=== PATIENT | female | born 2000 | race Caucasian/White ===

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

== ENCOUNTER 2019-02-17 14:04 | Emergency (ER) | payer OTHER ==
[2019-02-17 14:48] VITALS: BP 108/66
--- NOTE | 2019-02-17 15:15 | UC ---
Shoulder Pain HPI - HPI Summary HPI Summary: 18-year-old female comes in with a chief complaint of right shoulder pain. Started about 2 days ago. Started in the right trapezius muscle area. Pain does radiate down the right arm. Pain extends from the right side of the neck through the trapezius. She does have more pain when she moves that. Pain is worse she's using her right arm. She has had some intermittent tingling. Today when she was picking a gallon of milk should put it down because is afraid she might drop. She has pain with use; by history it appears the pain is limiting use of the arm rather than weakness. No known injury. Patient is 31 weeks . She's been putting heat on the area but is not helping. - History of Current Complaint Chief Complaint: UCUpperExtremity Stated Complaint: RIGHT SHOULDER/ARM PAIN Time Seen by Provider: 02/17/19 14:44 Pain Intensity: 7 - Allergies/Home Medications Allergies/Adverse Reactions: Allergies Allergy/AdvReac Type Severity Reaction Status Date / Time No Known Allergies Allergy Verified 02/17/19 14:43 PMH/Surg Hx/FS Hx/Imm Hx Previously Healthy: Yes - Surgical History Surgical History: Yes Surgery Procedure, Year, and Place: urine reflux. appy - Family History Known Family History: Positive: Cardiac Disease - Social History Alcohol Use: None Substance Use Type: None Smoking Status (MU): Never Smoked Tobacco Have You Smoked in the Last Year: No - Immunization History Vaccination Up to Date: Yes Review of Systems All Other Systems Reviewed And Are Negative: Yes Constitutional: Positive: Negative Skin: Positive: Negative Eyes: Positive: Negative ENT: Positive: Negative Respiratory: Positive: Negative Cardiovascular: Positive: Negative Gastrointestinal: Positive: Negative Motor: Positive: Other - SEE HPI Neurovascular: Positive: Other - SEE HPI Musculoskeletal: Positive: Other: - SEE HPI Neurological: Positive: Other - SEE HPI Psychological: Positive: Negative Is Patient Immunocompromised?: No Physical Exam Triage Information Reviewed: Yes Appearance: Well-Appearing, No Pain Distress, Well-Nourished Vital Signs: Initial Vital Signs Temp 98.2 F 02/17/19 14:43 Pulse 96 02/17/19 14:43 Resp 18 02/17/19 14:43 BP 108/66 02/17/19 14:43 Pulse Ox 99 02/17/19 14:43 Vital Signs Reviewed: Yes Eye Exam: Normal Eyes: Positive: Conjunctiva Clear Neck: Positive: Supple, Other: - TENDER TO PALPATION RT PARASPINOUS MUSCLES Respiratory: Positive: Lungs clear, Normal breath sounds, No respiratory distress Cardiovascular: Positive: RRR Musculoskeletal: Positive: Strength Intact, Other: - Radial pulses are equal bilaterally. No sensation deficits in the arms. Normal capillary refill bilateral arms. Fingers wrist elbows have full range of motion full-strength. Shoulder extension and abduction is limited to 30 on the right secondary to pain no limitation on the left. Internal rotation on the right is L1 on the left it's T6. Neurological: Positive: Alert, Muscle Tone Normal Psychological Exam: Normal Psychological: Positive: Normal Response To Family, Age Appropriate Behavior Skin Exam: Normal Shoulder Course/Dx - Course Course Of Treatment: Because the patient is 31 weeks and because there is no trauma and no neurologic deficit found on examination no imaging was performed today. Because of the patient's limited to Tylenol and Lidoderm patch. Also patient discharged with a soft cervical collar to see if that helps with her pain. Overall the plan is to use ice and some heat and use Lidoderm patch and acetaminophen and try to minimize use of that arm. Will follow-up with sports medicine if not completely improved. MRI is safe in and if the patient developed any concerning symptoms I would consider an MRI. But the patient know that if she doesn't up with weakness or numbness it does not go away she is to get reevaluated right away. - Differential Dx/Diagnosis Provider Diagnosis: Shoulder pain, right, Cervical radiculopathy Discharge - Sign-Out/Discharge Documenting (check all that apply): Patient Departure All imaging exams completed and their final reports reviewed: No Studies - Discharge Plan Condition: Stable Disposition: HOME Prescriptions: Lidocaine PATCH 5%* [Lidoderm 5% Patch*] 1 patch TRANSDERM DAILY #10 patch Patient Education Materials: Cervical Radiculopathy (ED), Shoulder Pain (ED) Forms: *School Release Referrals: Non Staff,Doctor [Primary Care Provider] - Sports Medicine [facility] [Provider Group] Additional Instructions: FOLLOW UP WITH SPORTS MEDICINE. GET REEVALUATED SOONER IF YOUR CONDITION WORSENS; PAIN, WEAKNESS, NUMBNESS OR ANY QUESTIONS OR CONCERNS. - Billing Disposition and Condition Condition: STABLE Disposition: Home
== END 2019-02-17 15:27 | disposition home or self-care (01) ==
LOC: UCCORT 14:04
DX: O26.893 Other specified pregnancy related conditions, third trimester (principal); M25.511 Pain in right shoulder; M54.12 Radiculopathy, cervical region; Z3A.31 31 weeks gestation of pregnancy
CPT/HCPCS: 99213; G0463

== ENCOUNTER 2019-02-23 20:00 | Emergency (ER) | payer OTHER ==
[2019-02-23] MEDS ORDERED: Metoclopramide IV* 5 MG/ML 2 ML VIAL IV SLOW PU ONE (23:33)
[2019-02-23] MEDS ORDERED: diPHENhydraMINE IV* 50 MG/ML 1 ml VIAL (BENADRYL) IV ONE (23:33)
[2019-02-23] MEDS ORDERED: NS 0.9% 1000 ML** 1,000 ML IV ONE (23:33)
[2019-02-24 00:30] LABS: ABS Basophils 0.1 10^3/ul (0-0.2); ABS Eosinophils 0.1 10^3/ul (0-0.6); ABS Lymphocytes 3.7 10^3/ul (1.0-4.8); ABS Monocytes 1.1 10^3/ul (0-0.8); ABS Neutrophils 8.4 10^3/ul (1.5-7.7); ABS Nucleated RBC 0 10^3/ul; Eosinophil % 1.1 %; Hematocrit 29 % (33-41); Hemoglobin 10.1 g/dL (12.0-16.0); Lymphocyte % 27.5 %; Mean Corpuscular HGB Conc 35 g/dL (31-36); Mean Corpuscular Hemoglobin 30 pg (27-31); Mean Corpuscular Volume 87 fL (80-97); Mean Platelet Volume 7.1 fL (7.4-10.4); Nucleated Red Blood Cells % 0.1; Platelet Count 231 10^3/uL (150-450); Red Blood Count 3.36 10^6 /uL (3.70-4.87); Red Cell Distribution Width 14 % (10.5-15); White Blood Count 13.5 10^3/uL (3.5-10.8)
--- NOTE | 2019-02-24 00:30 | ED ---
Headache - HPI Summary HPI Summary: 18-year-old female at 31 weeks presents with headache for the past 3 days. This is not the worst headache of her life. She was seen at [facility] yesterday. She has a headache has persisted. Has been taking Tylenol without relief. States the headache is located in the front of her head and radiates down to her neck. She admits to some light sensitivity. She denies any nausea vomiting. States that today she developed some shortness of breath. States that is only short of breath when she moves around or when she lays down. no sob when is sitting. she denies any chest pain. She also admits to epigastric pain. baby has been moving as normal. no cramping, contractions, or vaginal bleeding. Denies any urinary symptoms. States she is constipated. She'll states she has been having crampy pain in her left leg. Has no medical conditions. no family history of blood clots. - History Of Current Complaint Chief Complaint: EDHeadache Stated Complaint: HEADACHE PER PT Time Seen by Provider: 02/23/19 23:26 - Allergies/Home Medications Allergies/Adverse Reactions: Allergies Allergy/AdvReac Type Severity Reaction Status Date / Time No Known Allergies Allergy Verified 02/17/19 14:43 PMH/Surg Hx/FS Hx/Imm Hx Endocrine/Hematology History: Denies: Hx Anticoagulant Therapy Cardiovascular History: Denies: Hx Myocardial Infarction - Surgical History Surgery Procedure, Year, and Place: urine reflux. appy Infectious Disease History: No Infectious Disease History: Denies: Traveled Outside the [place] in Last 30 Days - Family History Known Family History: Positive: Cardiac Disease - Social History Alcohol Use: None Substance Use Type: Reports: None Smoking Status (MU): Never Smoked Tobacco Have You Smoked in the Last Year: No Review of Systems Negative: Fever Negative: Chest Pain Positive: Shortness Of Breath Positive: Abdominal Pain. Negative: Vomiting, Diarrhea, Nausea Positive: Headache All Other Systems Reviewed And Are Negative: Yes Physical Exam Triage Information Reviewed: Yes Vital Signs On Initial Exam: Initial Vitals Temp Pulse Resp BP Pulse Ox 97.6 F 106 18 127/83 98 02/23/19 20:06 02/23/19 20:06 02/23/19 20:06 02/23/19 20:06 02/23/19 20:06 Vital Signs Reviewed: Yes Appearance: Positive: Well-Appearing Skin: Positive: Warm, Dry Head/Face: Positive: Normal Head/Face Inspection Eyes: Positive: Normal, EOMI, AYE, Conjunctiva Clear, Other: - no papilledema seen ENT: Positive: Normal ENT inspection, Pharynx normal, TMs normal Respiratory/Lung Sounds: Positive: Clear to Auscultation, Breath Sounds Present Cardiovascular: Positive: Normal, RRR Abdomen Description: Positive: Soft, Other: - tenderness LUQ Bowel Sounds: Positive: Present Musculoskeletal: Positive: Normal Neurological: Positive: Sensory/Motor Intact, Alert, Oriented to Person Place, Time, CN Intact II-III Psychiatric: Positive: Normal Diagnostics - Vital Signs Vital Signs Temp Pulse Resp BP Pulse Ox 02/23/19 22:19 97.9 F 84 18 116/78 97 02/23/19 20:06 97.6 F 106 18 127/83 98 - Laboratory Lab Results: Lab Results 02/24/19 Range/Units 00:24 WBC 13.5 H (3.5-10.8) 10^3/uL RBC 3.36 L (3.70-4.87) 10^6 /uL Hgb 10.1 L (12.0-16.0) g/dL Hct 29 L (33-41) % MCV 87 (80-97) fL MCH 30 (27-31) pg MCHC 35 (31-36) g/dL RDW 14 (10.5-15) % Plt Count 231 (150-450) 10^3/uL MPV 7.1 L (7.4-10.4) fL Neut % (Auto) 62.7 % Lymph % (Auto) 27.5 % [place] % (Auto) 8.0 % Eos % (Auto) 1.1 % Baso % (Auto) 0.7 % Absolute Neuts (auto) 8.4 H (1.5-7.7) 10^3/ul Absolute Lymphs (auto) 3.7 (1.0-4.8) 10^3/ul Absolute Monos (auto) 1.1 H (0-0.8) 10^3/ul Absolute Eos (auto) 0.1 (0-0.6) 10^3/ul Absolute Basos (auto) 0.1 (0-0.2) 10^3/ul Absolute Nucleated RBC 0 10^3/ul Nucleated RBC % 0.1 Result Diagrams: 02/24/19 00:24 02/24/19 00:24 Lab Statement: Any lab studies that have been ordered have been reviewed, and results considered in the medical decision making process. - EKG No standard instances Cardiac Rate: NL EKG Rhythm: Sinus Rhythm Summary of EKG Findings: sinus rhythm Re-Evaluation - Re-Evaluation First Eval Re-Evaluation Time: 00:30 Change: Unchanged Comment: symptoms same, bp 100/68 Second Eval Re-Evaluation Time: 01:43 Change: Unchanged Comment: headache persists Third Eval Re-Evaluation Time: 02:12 Change: Improved Comment: pain is now a 5 out of 10 Headache Course/Dx - Course Course Of Treatment: 18-year-old female at 31 weeks presents with headache for the past 3 days. This is not the worst headache of her life. She was seen at [facility] yesterday. She has a headache has persisted. Has been taking Tylenol without relief. States the headache is located in the front of her head and radiates down to her neck. She admits to some light sensitivity. She denies any nausea vomiting. States that today she developed some shortness of breath. States that is only short of breath when she moves around or when she lays down. no sob when is sitting. she denies any chest pain. She also admits to epigastric pain. baby has been moving as normal. no cramping, contractions, or vaginal bleeding. Denies any urinary symptoms. States she is constipated. She'll states she has been having crampy pain in her left leg. Has no medical conditions. no family history of blood clots. On exam has a normal neuro exam. Nontender left leg. Heart regular rhythm. bp has been normal in the ER so do not think is preeclamptic. White blood cell 13. magnesium 1.6. gave benadryl, reglan and fluids and feel asleep. lfts normal. u/ s legs normal. ekg sinus rhythm. do not suspect PE at this time as only sob when lies down or ambulates. discussed with dr cobos. discussed with patient that does not want anything stronger than tyenlol and patient states pain is improving so will discharge after magnesium is done. told to follow up with ob. patient understand and agrees with plan. - Diagnoses Differential Diagnosis/HQI/PQRI: Migraine, Tension Headache, Viral Syndrome, Other - pre-eclamspia Provider Diagnoses: Headache Discharge - Sign-Out/Discharge Documenting (check all that apply): Patient Departure Patient Received Moderate/Deep Sedation with Procedure: No - Discharge Plan Condition: Good Disposition: HOME Patient Education Materials: Acute Headache (ED) Referrals: No Primary Care Phys,NOPCP [Primary Care Provider] - Additional Instructions: follow up with ob Take tyenlol as needed for pain Return to ED if develop any new or worsening symptoms - Billing Disposition and Condition Condition: GOOD Disposition: Home
[2019-02-24] MEDS ORDERED: Acetaminophen TAB* 325 MG PO ONE (00:45)
[2019-02-24 00:48] LABS: Albumin 3.3 g/dL (3.2-5.2); Albumin/Globulin Ratio 1.2 (1-3); BUN/Creatinine Ratio 15.6 (8-20); Calcium 8.7 mg/dL (8.6-10.3); EGFR African American 217.2 (>60); EGFR Non-African American 179.5 (>60); Globulin 2.7 g/dL (2-4); Magnesium 1.6 mg/dL (1.9-2.7); Potassium 3.2 mmol/L (3.5-5.0); Total Bilirubin 0.3 mg/dL (0.2-1.0)
[2019-02-24] MEDS ORDERED: Magnesium Sulfate 2 GM IV* 2 GM/50 ML BAG IVPB ONE (00:51)
[2019-02-24 01:12] LABS: C Reactive Protein 15.11 mg/L (<8.01)
[2019-02-24] MEDS ORDERED: Ketorolac INJ* 30 MG/ML 1 ML VIAL IV PUSH ONE (01:42)
[2019-02-24] MEDS ORDERED: Potassium Chlor TAB* 20 MEQ TAB.ER PO ONE (02:14)
[2019-02-24 03:15] VITALS: BP 97/65
== END 2019-02-24 03:14 | disposition home or self-care (01) ==
LOC: ED 20:00
DX: O26.893 Other specified pregnancy related conditions, third trimester (principal); R51 Headache; R06.02 Shortness of breath; R10.13 Epigastric pain; M79.605 Pain in left leg; Z3A.31 31 weeks gestation of pregnancy
CPT/HCPCS: 36415; 80053; 83690; 83735; 85025; 86140; 93005; 93970; 96361; 96374; 96375; 99283; A9270-GY; J1200; J2765; J3475

== ENCOUNTER 2019-04-26 21:55 | Inpatient (IN) | payer OTHER ==
[2019-04-26] MEDS ORDERED: Buffered Lidocaine 1% SYRIN* 1 ML/SYRINGE INTRADERM ONE (23:11)
[2019-04-26] MEDS ORDERED: Lactated Ringers 1000 ML Bag* 1,000 ML IV ONE (23:11)
--- NOTE | 2019-04-26 23:19 | HP ---
General Information - Reason for Visit Patient reports mild/moderate contractions increasing in intensity and frequency. Bleeding noted as well. - General Information Maternal Age: 19 Grav: 1 Para: 0 SAB: 0 IEA: 0 Estimated Due Date: 04/24/19 Determined By: LMP Maternal Blood Type and Rh: O Positive - Results this Serology/RPR Result: Non-Reactive Rubella Result: Immune HBsAg Result: Negative HIV Result: Negative GBS Culture Result: Negative Past Medical History Delivery History: See Records Delivery History Comment: No previous pregnancies Pertinent Past Medical History: See Records Past Medical History Comment: Migraine Asthma Eczema Pertinent Past Surgical History: See Records Past Surgical History Comment: Vesicouretal reflux surge @ age 6 Appendectomy 12/17/2017 Pertinent Family History: Non-Contributory - Antepartal Records Antepartal Records: Reviewed, Complicated by: - obesity Review of Systems Constitutional: Uncomfortable CV Complaint: No Respiratory: Shortness of Breath: No Gastrointestinal: Nausea, Soft Stool Genitourinary: Bleeding, Leaking Fluid Musculoskeletal: Contractions Neurological: No Headache, No Visual Changes Movement: Normal Exam Allergies/Adverse Reactions: Allergies No Known Allergies Allergy (Verified 04/10/19 22:42) BP 119/82 HR 104 T 98.3 RR 18 O2 100 - Measurements Height: 5 ft 5 in Weight: 210 lb Weight in lbs: [id number] Body Mass Index (BMI): 34.9 Pre- Weight: 213 lb Weight Gained This : -3 lbs and 0 ozs - Exam Breast: Breast Exam Deferred CVA: No CVA Tenderness Extremities: No Edema Heart: Normal Rhythm/Heart Sounds HEENT: No Significant Findings Lungs: Clear Bilaterally Rectal: Rectal Exam Deferred Reflexes: DTR 2+, - - no clonues Thyroid: - - WNL @ entry to AP - Abdominal Exam Abdomen Exam: Non-Tender, Fundal Height Consistent with Dates - Ultrasound/Biophysical Profile Ultrasound Status: Not Done Targeted Exam Findings See L&D Outpatient Visit Provider Note for Findings: Yes Estimated Weight: 8lb Cervical Exam: 3cm Effacement: 90% Station: 0 Presenting Part: Vertex Membrane Status: Leaking Amniotic Fluid Evaluation: Meconium Bleeding/Discharge: Bloody Show EFM Findings - External Monitor Findings Baseline Heart Rate: 125 External Monitor Findings: Accelerations Present, No Pattern of Variable or Late Decelerations, Variability Moderate Contractions: Regular, Moderate, 45-90 Seconds Contraction Frequency: q 3-4 min Assessment/Plan - Assessment IUP @ 40+2 weeks gestation in early labor. SROM with meconium stained fluid. Cat 1 FHT. - Obstetrical Risk Factors Obstetrical Risk Factors: Obesity - Plan Plan: Admit - Anticipate Vaginal Delivery Plan Comment: Admit to L&D. Patient prefers unmedicated and will try tub for pain management. Anticipate SVB. - Date/Time of Admission Date of Admission: 04/26/19 Time of Admission: 22:46
[2019-04-26] MEDS ORDERED: Lactated Ringers 1000 ML Bag* 1,000 ML IV SCH (23:45)
[2019-04-27 00:41] LABS: ABS Basophils 0.1 10^3/ul (0-0.2); ABS Eosinophils 0.1 10^3/ul (0-0.6); ABS Lymphocytes 3.5 10^3/ul (1.0-4.8); ABS Monocytes 1.4 10^3/ul (0-0.8); ABS Neutrophils 12.3 10^3/ul (1.5-7.7); Eosinophil % 0.5 %; Hematocrit 33 % (35-47); Hemoglobin 11.6 g/dL (12.0-16.0); Lymphocyte % 20.1 %; Mean Corpuscular HGB Conc 35 g/dL (31-36); Mean Corpuscular Hemoglobin 29 pg (27-31); Mean Corpuscular Volume 84 fL (80-97); Mean Platelet Volume 7.8 fL (7.4-10.4); Platelet Count 307 10^3/uL (150-450); Red Blood Count 3.97 10^6 /uL (3.70-4.87); Red Cell Distribution Width 15 % (10-15); White Blood Count 17.4 10^3/uL (3.5-10.8)
--- NOTE | 2019-04-27 00:45 | PN ---
Progress Note - Progress Note Date of Service: 04/27/19 Note: S: Patient tearful with contractions, stating "I can't do it". States she is "unable to hold" mask for nitrous oxide and would like epidural. O: VE 5-6cm/90%/vtx 0 FHT 130, Cat 1 UCs q 1.5-3 min A: IUP in active labor No evidence metabolic acidemia P: Anesthesia paged.
[2019-04-27] MEDS ORDERED: OBEPIDURAL* 250 ML EPIDURAL ONE (00:55)
[2019-04-27] MEDS ORDERED: Phenylephrine 40 MCG/ML SYRINGE IV PUSH PRN ×2 (01:37)
[2019-04-27] MEDS ORDERED: Lactated Ringers 1000 ML Bag* 500 ML IV PRN ×2 (01:37)
[2019-04-27] MEDS ORDERED: Sodium Citrate/Citric Acid* 15 ML UDC PO PRN (01:37)
[2019-04-27] MEDS ORDERED: Famotidine TAB* 20 MG PO PRN (01:37)
[2019-04-27] MEDS ORDERED: Lactated Ringers 1000 ML Bag* 1,000 ML IV ONE (01:37)
[2019-04-27] MEDS ORDERED: Lactated Ringers 1000 ML Bag* 1,000 ML IV SCH ×3 (02:00→07:00)
[2019-04-27] MEDS ORDERED: OBEPIDURAL* 250 ML EPIDURAL SCH (02:00)
--- NOTE | 2019-04-27 03:08 | PN ---
Progress Note - Progress Note Date of Service: 04/27/19 Note: S: Patient comfortable with epidural but reports increasing low pelvic pressure and feels that she "needs to push". O: VE 9.5/100/0 FHT 120 Cat 1 VSS A: IUP in labor P: Labor down in lateral position with peanut ball.
[2019-04-27] MEDS ORDERED: Ondansetron INJ* 2 MG/ML VIAL IV PRN (03:40)
[2019-04-27] MEDS ORDERED: Oxytocin in LR* 20 UNITS/1,000 ML BAG IVPB ONE (04:40)
[2019-04-27] MEDS ORDERED: Glycerin ADULT SUPP PR PRN (06:46)
[2019-04-27] MEDS ORDERED: Witch Hazel PAD* JAR TOPICAL PRN (06:46)
[2019-04-27] MEDS ORDERED: Acetaminophen TAB* 325 MG PO PRN (06:46)
[2019-04-27] MEDS ORDERED: Dibucaine 1% 28.35 GM TUBE PR PRN (06:46)
[2019-04-27] MEDS ORDERED: Ibuprofen TAB* 600 MG PO PRN (06:46)
[2019-04-27] MEDS ORDERED: Oxytocin in LR* 20 UNITS/1,000 ML BAG IVPB SCH (07:00)
[2019-04-27] MEDS: Docusate CAP* 100 MG PO SCH ×3 (07:32→23:48)
--- NOTE | 2019-04-27 07:35 | PROCNOTE ---
[facility] OB: Delivery Note - Delivery A Date of : 04/27/19 Time of : 04:34 [place] Sex: Male - "Eddie" Franklin Weight at : 8 lb 4 oz Score 1 Minute: 8 Score 5 Minutes: 9 Gestational Age in Weeks and Days at Delivery: 40 Weeks and 3 Days Delivery Method: Spontaneous Vaginal Labor: Spontaneous Did Patient attempt ?: N/A, No Previous Amniotic Fluid: Meconium Estimated Blood Loss: 300 Anesthesia/Analgesia: CEI for Labor Delivered By: Aries Aguilar - Nursery Level of Nursery: Regular/Bedside - Perineum Perineal Injury: Perineal Laceration, 1st Degree Perineal Repair: By Delivering Practioner - Events Delivery Events of Note: Pitocin Only After Delivery - Additional Delivery Notes Additional Delivery Notes: Patient admitted in active labor. SROM while in triage with meconium stained fluid. Patient attempted using nitrous for pain relief but didn't like. Received epidural as desired with good relief. Labored down to urge to push. LOL 6'26", pushed 34 min. Baby born OA, nuchal X1 and body cord X1, delivered through and unwrapped after delivery. To maternal abdomen with spontaneous cry. Cord doubly clamped and cut by FOB once pulsations ceased. Placenta followed with gentle cord traction in Wiggins presentation. Long, 3VC, intact-appear membranes. Fundus firm to massage and pitocin infusing. Baby at breast to initiate .
[2019-04-27] MEDS ORDERED: Lidocaine 1% INJ* 10 MG/ML 30 ML SDV ONE (15:32)
[2019-04-27] MEDS ORDERED: Lidocaine 2% JELLY* 6 ML JELLY TOPICAL SCH (21:00)
[2019-04-28 07:11] LABS: ABS Eosinophils 0.1 10^3/ul (0-0.6); ABS Lymphocytes 4.2 10^3/ul (1.0-4.8); ABS Neutrophils 8.9 10^3/ul (1.5-7.7); Eosinophil % 0.9 %; Hematocrit 28 % (35-47); Hemoglobin 9.7 g/dL (12.0-16.0); Lymphocyte % 29.4 %; Mean Corpuscular HGB Conc 34 g/dL (31-36); Mean Corpuscular Hemoglobin 29 pg (27-31); Mean Corpuscular Volume 85 fL (80-97); Mean Platelet Volume 7.8 fL (7.4-10.4); Platelet Count 230 10^3/uL (150-450); Red Blood Count 3.32 10^6 /uL (3.70-4.87); Red Cell Distribution Width 15 % (10-15); White Blood Count 14.3 10^3/uL (3.5-10.8)
[2019-04-28 08:32] VITALS: BP 116/64
[2019-04-28] MEDS: Docusate CAP* 100 MG PO SCH (08:40)
[2019-04-28] MEDS ORDERED: Ferrous Gluconate TAB* 324 MG TAB PO SCH (09:00)
== END 2019-04-28 14:32 | disposition home or self-care (01) | DRG 560 ==
LOC: MCHOBOUT 21:55 → MCHOB 22:46
PROVIDERS: ADMIT Midwife; ATTEND Midwife
PROC: 10E0XZZ Delivery of Products of Conception, External Approach (ICD-10-PCS; principal; 2019-04-27)
PROC: 10907ZC Drainage of Amniotic Fluid, Therapeutic from Products of Conception, Via Natural or Artificial Opening (ICD-10-PCS; 2019-04-27)
PROC: 4A1HXCZ Monitoring of Products of Conception, Cardiac Rate, External Approach (ICD-10-PCS; 2019-04-27)
PROC: 0HQ9XZZ Repair Perineum Skin, External Approach (ICD-10-PCS; 2019-04-27)
DX: O48.0 Post-term pregnancy (principal); Z37.0 Single live birth; O99.214 Obesity complicating childbirth; O77.0 Labor and delivery complicated by meconium in amniotic fluid; O70.0 First degree perineal laceration during delivery; O90.81 Anemia of the puerperium; R33.9 Retention of urine, unspecified; O69.2XX0 Labor and delivery complicated by other cord entanglement, with compression, not applicable or unspecified; O90.89 Other complications of the puerperium, not elsewhere classified; O69.81X0 Labor and delivery complicated by cord around neck, without compression, not applicable or unspecified; Z3A.40 40 weeks gestation of pregnancy; Z87.891 Personal history of nicotine dependence
CPT/HCPCS: 36415; 85025; 86850; 86900; 86901; A9270-GY; J2405

== ENCOUNTER 2019-10-23 10:18 | Emergency (ER) | payer OTHER ==
[2019-10-23 10:30] VITALS: BP 115/62
--- NOTE | 2019-10-23 11:44 | UC ---
Hand/Wrist HPI - HPI Summary HPI Summary: 19 year old female presents with 3 week history of right wrist pain. No known injury. States has progressively worsened especially over the past week. Describes as a constant ache. Worsens with flexion of the wrist. Reports intermittent numbness and tingling in the thumb, none at present. No alleviating factors however has not tired any OTC analgesics. Denies bruising or swelling. - History Of Current Complaint Chief Complaint: UCUpperExtremity Stated Complaint: RIGHT WRIST COMPLAINT Time Seen by Provider: 10/23/19 10:44 Hx Obtained From: Patient Pain Intensity: 7 - Allergies/Home Medications Allergies/Adverse Reactions: Allergies Allergy/AdvReac Type Severity Reaction Status Date / Time No Known Allergies Allergy Verified 10/23/19 10:26 PMH/Surg Hx/FS Hx/Imm Hx Previously Healthy: Yes - Denies significant PMH Other History Of: Negative For: Anticoagulant Therapy - Surgical History Surgical History: Yes Surgery Procedure, Year, and Place: urine reflux. appy - Family History Known Family History: Positive: Cardiac Disease - Social History Occupation: Works From/At Home Lives: With Family Alcohol Use: None Substance Use Type: None Smoking Status (MU): Former Smoker Have You Smoked in the Last Year: No - Immunization History Most Recent Influenza Vaccination: fall 2017 Most Recent Pneumonia Vaccination: never Vaccination Up to Date: Yes Review of Systems All Other Systems Reviewed And Are Negative: Yes Constitutional: Positive: Negative Skin: Negative: Rash, Bruising Respiratory: Positive: Negative Cardiovascular: Positive: Negative Gastrointestinal: Positive: Negative Genitourinary: Positive: Negative Motor: Negative: Weakness Neurovascular: Negative: Decreased Sensation Musculoskeletal: Positive: Other: - See HPI Neurological: Positive: Negative Is Patient Immunocompromised?: No Physical Exam - Summary Physical Exam Summary: GENERAL APPEARANCE: Well developed, well nourished, alert and cooperative, and appears to be in no acute distress. CARDIAC: Normal S1 and S2. No S3, S4 or murmurs. Rhythm is regular. There is no peripheral edema, cyanosis or pallor. Extremities are warm and well perfused. Capillary refill is less than 2 seconds. Peripheral pulses intact. LUNGS: Clear to auscultation without rales, rhonchi, wheezing or diminished breath sounds. ABDOMEN: Positive bowel sounds. Soft, nondistended, nontender. No guarding or rebound. No masses or hepatosplenomegally. MUSKULOSKELETAL: ROM intact to all extremities. No joint erythema or tenderness. Normal muscular development. Normal gait. EXTREMITIES: Tenderness over the anterior radial wrist without gross deformity, ecchymosis, or edema noted. Strength, circulation, and sensation intact. SKIN: Skin normal color, texture and turgor with no lesions or eruptions. Triage Information Reviewed: Yes Vital Signs: Initial Vital Signs Temp 97.2 F 10/23/19 10:27 Pulse 84 10/23/19 10:27 Resp 16 10/23/19 10:27 BP 115/62 10/23/19 10:27 Pulse Ox 100 10/23/19 10:27 Vital Signs Reviewed: Yes Diagnostics - Radiology No standard instances Radiology Interpretation Completed By: ED Physician - No acute fracture or dislocation., Radiologist Summary of Radiographic Findings: Order Information: WRIST RIGHT 3+ VWS. INDICATION: 1 month of radial aspect wrist pain. COMPARISON: None. TECHNIQUE: 3 views right wrist. REPORT: The visualized bones are properly aligned and well corticated. The joint spaces are normal.There is no fracture, dislocation or other focal osseous abnormality. IMPRESSION: Normal radiograph of the right wrist. Hand/Wrist Course/Dx - Course Course Of Treatment: 19 year old female presents with 3 week history of right wrist pain. No known injury. States has progressively worsened especially over the past week. Describes as a constant ache. Worsens with flexion of the wrist. Reports intermittent numbness and tingling in the thumb, none at present. No alleviating factors however has not tired any OTC analgesics. Denies bruising or swelling. Afebrile. Vital signs stable. On exam patient had tenderness over the anterior radial wrist without gross deformity, ecchymosis, or edema noted with strength, circulation, and sensation intact. X-ray of the wrist showed no acute fracture dislocation. Discussed with patient that her symptoms are suggestive of a possible carpal tunnel syndrome and recommending conservative treatment at this time. She was placed in a cockup wrist splint by the RN. She is to take naproxen 500 mg every 12 hours food for the next 5 days then every 12 hours as needed. She is to follow-up with her primary care provider in 7 days if symptoms are not improving. Anticipatory guidance and warning symptoms were reviewed with the patient. Verbalizes understanding the plan of care. - Differential Dx/Diagnosis Differential Diagnosis/HQI/PQRI: Carpal Tunnel Syndrome, Fracture, Sprain, Tendonitis Provider Diagnosis: Right wrist pain Discharge ED - Sign-Out/Discharge Documenting (check all that apply): Patient Departure All imaging exams completed and their final reports reviewed: Yes - Discharge Plan Condition: Stable Disposition: HOME Prescriptions: Naproxen [Naproxen 500 mg tab] 500 mg PO Q12HR #30 tablet Patient Education Materials: Arthralgia (ED) Referrals: No Primary Care Phys,NOPCP [Primary Care Provider] - Additional Instructions: The x-ray performed in the clinic today showed no evidence of a fracture. It will be reviewed by the radiologist today and we will contact you if they see anything that would change your plan of care. I suspect that your symptoms may be from some carpal tunnel syndrome. Rest the wrist as much as possible. Wear the splint that was applied in the clinic until you are pain-free. You may remove to shower but should wear at all other times. Apply ice to the affected area for 15-20 minutes at least 4 times a day to help with the pain and swelling. Take naproxen 500 mg 1 tab every 12 hours with food for next 5 days then take every 12 hours as needed for pain. Follow up with your primary care provider in 7 days if symptoms do not improve. Seek immediate medical attention if you have severe pain not managed with pain medication, develop persistent numbness or tingling in the hand of fingers, lose function or develop weakness in the hand, or have any worsening of symptoms. - Billing Disposition and Condition Condition: STABLE Disposition: Home
== END 2019-10-23 11:58 | disposition home or self-care (01) ==
LOC: UCCORT 10:18
DX: M25.531 Pain in right wrist (principal); Z87.891 Personal history of nicotine dependence
CPT/HCPCS: 99213; G0463

== ENCOUNTER 2020-01-18 11:44 | Emergency (ER) | payer OTHER ==
[2020-01-18 12:22] VITALS: BP 117/72
--- NOTE | 2020-01-18 12:56 | UC ---
Ear Complaint HPI - HPI Summary HPI Summary: 19-year-old female presents with complaints of left ear pain, sore throat, and occasional nonproductive cough. Symptoms associated with some mild nasal congestion and postnasal drip. Denies fever, chills, myalgias, ear drainage, dysphasia, chest pain, shortness of breath, abdominal pain, nausea, or vomiting. - History of Current Complaint Chief Complaint: UCEar Stated Complaint: LT EAR PAIN Time Seen by Provider: 01/18/20 12:19 Hx Obtained From: Patient Pain Intensity: 7 - Allergies/Home Medications Allergies/Adverse Reactions: Allergies Allergy/AdvReac Type Severity Reaction Status Date / Time No Known Allergies Allergy Verified 01/18/20 12:22 Home Medications: Home Medications NK [No Home Medications Reported] 01/18/20 [History Confirmed 01/18/20] PMH/Surg Hx/FS Hx/Imm Hx Previously Healthy: Yes - Denies signigicant PMH Other History Of: Negative For: Anticoagulant Therapy - Surgical History Surgical History: Yes Surgery Procedure, Year, and Place: urine reflux. appy - Family History Known Family History: Positive: Cardiac Disease - Social History Occupation: Employed Full-time Lives: With Family Alcohol Use: None Substance Use Type: None Smoking Status (MU): Former Smoker Have You Smoked in the Last Year: No When Did the Patient Quit Smoking/Using Tobacco: 2-3 yrs ago - Immunization History Most Recent Influenza Vaccination: fall 2017 Most Recent Pneumonia Vaccination: never Vaccination Up to Date: Yes Review of Systems All Other Systems Reviewed And Are Negative: Yes Constitutional: Negative: Fever, Chills Eyes: Negative: Drainage, Eye Redness ENT: Positive: Sore Throat, Ear Ache, Sinus Congestion. Negative: Nasal Discharge, Sinus Pain/Tenderness Respiratory: Positive: Cough. Negative: Shortness Of Breath Cardiovascular: Negative: Chest Pain Gastrointestinal: Negative: Abdominal Pain, Vomiting, Nausea Genitourinary: Positive: Negative Musculoskeletal: Positive: Negative Neurological/Mental Status: Positive: Negative Is Patient Immunocompromised?: No Physical Exam - Summary Physical Exam Summary: GENERAL APPEARANCE: Alert and cooperative young adult female who appears to be in no acute distress. EYES: Conjunctiva clear. No drainage. EARS: External auditory canals and tympanic membranes clear, hearing grossly intact. NOSE: Mild nasal congestion without discharge. THROAT: Mild pharyngeal erythema. 2+ tonsils without inflammation, swelling, exudate, or lesions. Uvula midline. NECK: Neck supple, non-tender without lymphadenopathy. CARDIAC: Normal S1 and S2. No S3, S4 or murmurs. Rhythm is regular. There is no peripheral edema, cyanosis or pallor. Extremities are warm and well perfused. Capillary refill is less than 2 seconds. Peripheral pulses intact. LUNGS: Clear to auscultation without rales, rhonchi, wheezing or diminished breath sounds. Cough not observed. ABDOMEN: Positive bowel sounds. Soft, nondistended, nontender. No guarding or rebound. No masses or hepatosplenomegally. MUSKULOSKELETAL: ROM intact to all extremities. No joint erythema or tenderness. Normal muscular development. Normal gait. SKIN: Skin normal color, texture and turgor with no lesions or eruptions. Triage Information Reviewed: Yes Vital Signs: Initial Vital Signs Temp 98.5 F 01/18/20 12:18 Pulse 96 01/18/20 12:18 Resp 18 01/18/20 12:18 BP 117/72 01/18/20 12:18 Pulse Ox 100 01/18/20 12:18 Vital Signs Reviewed: Yes Ear Complaint Course/Dx - Course Course Of Treatment: 19-year-old female presents with complaints of left ear pain, sore throat, and occasional nonproductive cough. Symptoms associated with some mild nasal congestion and postnasal drip. Denies fever, chills, myalgias, ear drainage, dysphasia, chest pain, shortness of breath, abdominal pain, nausea, or vomiting. He is. Vital signs stable. Patient had mild nasal congestion without drainage, normal TMs, pharyngeal erythema, 2+ tonsils with exudate, no cervical lymphadenopathy, clear bilateral breath sounds, and otherwise unremarkable exam. Rapid strep test was negative. Recommending symptomatic treatment for a viral URI. She is to return here or follow up with primary care in 5-7 days if symptoms persist. Respiratory guidance and warning symptoms were reviewed with patient. Verbalizes understanding and agrees with plan of care. - Differential Dx/Diagnosis Differential Diagnosis/HQI/PQRI: Cerumen Impaction, Otitis Externa, Otitis Media , URI, Other - Serous otitis Provider Diagnosis: Viral URI Discharge ED - Sign-Out/Discharge Documenting (check all that apply): Patient Departure All imaging exams completed and their final reports reviewed: No Studies - Discharge Plan Condition: Stable Disposition: HOME Patient Education Materials: Upper Respiratory Infection (ED) Referrals: No Primary Care Phys,NOPCP [Primary Care Provider] - [facility]FERR[facility] [Outside] Additional Instructions: The rapid strep test performed in the clinic today was negative. Your history and exam are consistent with a viral upper respiratory infection. Viral infections do not respond to antibiotics and are limited to the treatment of symptoms. Viral infections typically run their course in 7-10 days. Drink plenty of fluids to avoid dehydration especially if you are running any fever. Use a saline rinse kit such as Neti Pot or NeilMed at least twice a day to help thin secretions and promote drainage of the sinuses. Use fluticasone (Flonase) nasal spray 2 sprays each nostril once daily. Take over the counter acetaminophen (Tylenol) or ibuprofen (Advil, Motrin) according to directions as needed for pain or fever. Use salt water gargles several times a day if you have a sore throat. You may also use Chloraseptic spray or Cepacol lonzenges according to directions which contain a numbing medication and can provide some temporary relief from your sore throat. Return here of follow up with primary care in 5-7 days if symptoms persist. I have given you the contact information for the [facility] physician referral service if you need assistance with establishing with a provider. Seek immediate medical attention in the emergency room if you have fever greater than 100.5 F despite taking acetaminophen or ibuprofen, have chest pain , difficulty breathing, are unable to swallow, or have any worsening of symptoms. - Billing Disposition and Condition Condition: STABLE Disposition: Home
== END 2020-01-18 13:39 | disposition home or self-care (01) ==
LOC: UCCORT 11:44
DX: J06.9 Acute upper respiratory infection, unspecified (principal); Z87.891 Personal history of nicotine dependence
CPT/HCPCS: 87651; 99211; G0463